=== PATIENT | female | born 1945 | race Caucasian/White ===

== ENCOUNTER → 2020-09-06 15:49 | Outpatient (BNVA) | payer OTHER, MEDICARE, SELFPAY | PROVIDERS: Family Provider Nurse Practitioner Family; PCP Registered Nurse; Visit Provider Registered Nurse | DX: N39.0 Urinary tract infection, site not specified (principal); J30.1 Allergic rhinitis due to pollen; R39.9 Unspecified symptoms and signs involving the genitourinary system | CPT/HCPCS: 81000; 87077; 87086; 87184 ==

== ENCOUNTER → 2020-09-22 08:46 | Outpatient (BNVA) | payer OTHER, MEDICARE, SELFPAY | PROVIDERS: Family Provider Nurse Practitioner Family; PCP Registered Nurse; Visit Provider Registered Nurse | DX: R39.9 Unspecified symptoms and signs involving the genitourinary system (principal); Z13.6 Encounter for screening for cardiovascular disorders; I10 Essential (primary) hypertension; F17.210 Nicotine dependence, cigarettes, uncomplicated; N39.0 Urinary tract infection, site not specified; J45.30 Mild persistent asthma, uncomplicated; B37.3 Candidiasis of vulva and vagina | CPT/HCPCS: 80053; 80061; 81000; 85025; 87086 ==

== ENCOUNTER → 2020-10-20 10:40 | Outpatient (BNVA) | payer OTHER, MEDICARE, SELFPAY | PROVIDERS: Family Provider Nurse Practitioner Family; PCP Registered Nurse; Visit Provider Nurse Practitioner Family | DX: R35.0 Frequency of micturition (principal); R31.9 Hematuria, unspecified; N39.0 Urinary tract infection, site not specified | CPT/HCPCS: 81000; 87077; 87086; 87184 ==

== ENCOUNTER → 2020-11-24 15:00 | Outpatient (BNVA) | payer OTHER, MEDICARE, SELFPAY | PROVIDERS: Family Provider Nurse Practitioner Family; PCP Registered Nurse; Visit Provider Family Medicine | DX: R41.3 Other amnesia (principal); R53.83 Other fatigue | CPT/HCPCS: 80053; 82607; 82652; 82746; 84443; 85025 ==

== ENCOUNTER → 2021-03-15 14:20 | Outpatient (BNVA) | payer MEDICARE, SELFPAY | PROVIDERS: PCP Registered Nurse; Visit Provider Nurse Practitioner Family | DX: R35.0 Frequency of micturition (principal) | CPT/HCPCS: 81000 ==

== ENCOUNTER 2021-04-26 13:56 | Outpatient (CLI) | payer MEDICARE, SELFPAY ==
--- NOTE | 2021-04-26 14:30 | MM_ITS ---
WS: [id number] BILATERAL DIGITAL SCREENING MAMMOGRAPHY WITH CAD CLINICAL INFORMATION: Z12.39 - Encounter for other screening for malignant neop... HISTORY: Screening mammogram. No current complaints. COMPARISON: February 26, 2017 TECHNIQUE: Bilateral CC and MLO views. FINDINGS: Scattered fibroglandular densities bilaterally. A few tiny punctate calcifications. No suspicious foc al mass, asymmetry, calcifications, or architectural distortion. No evidence of malignancy. MM/[place] [id number] IMPRESSION: BI-RADS: 2-Benign FOLLOW UP: 1 Year Follow-up Recommend return to annual screening mammography.
== END 2021-04-26 13:57 | disposition home or self-care (01) ==
LOC: RADSHAW 14:03
PROVIDERS: PCP Registered Nurse; Visit Provider Family Medicine
DX: Z12.31 Encounter for screening mammogram for malignant neoplasm of breast (principal)
CPT/HCPCS: 77067

== ENCOUNTER → 2021-07-21 15:29 | Outpatient (BNVA) | payer MEDICARE, SELFPAY | PROVIDERS: PCP Nurse Practitioner Family; Visit Provider Nurse Practitioner Family | DX: R53.83 Other fatigue (principal); J06.9 Acute upper respiratory infection, unspecified | CPT/HCPCS: 82962 ==

== ENCOUNTER → 2021-08-30 16:14 | Outpatient (BNVA) | payer MEDICARE, SELFPAY | PROVIDERS: PCP Nurse Practitioner Family; Visit Provider Nurse Practitioner Family | DX: R53.83 Other fatigue (principal); M25.50 Pain in unspecified joint; R05.9 Cough, unspecified | CPT/HCPCS: 80053; 84439; 84443; 84481; 85025; 86160; 86162; 86235; 86255; 86376; 86431; 86618; 86666; 86757 ==

== ENCOUNTER → 2022-09-28 14:28 | Outpatient (BNVA) | payer MEDICARE, SELFPAY | PROVIDERS: PCP Nurse Practitioner Family; Visit Provider Nurse Practitioner Family | DX: R35.0 Frequency of micturition (principal) | CPT/HCPCS: 81000 ==

== ENCOUNTER → 2022-10-01 10:33 | Outpatient (BNVA) | payer MEDICARE, SELFPAY | PROVIDERS: PCP Nurse Practitioner Family; Visit Provider Nurse Practitioner Family | DX: R53.83 Other fatigue (principal); R63.4 Abnormal weight loss; R41.3 Other amnesia | CPT/HCPCS: 80053; 82607; 84439; 84443; 84481; 85025 ==

== ENCOUNTER 2022-10-08 15:48 | Outpatient (CLI) | payer MEDICARE, SELFPAY ==
--- NOTE | 2022-10-08 16:00 | US_ITS ---
WS: [id number] US pelv w/transvag [id number] HISTORY: R10.2 - Pelvic and perineal pain COMPARISON: None available. Uterus: 6.2 cm x 2.7 cm x 2.9 cm. Slightly retroverted uterus. Hypoechoic mass consistent with a fibroid along the posterior myometrium measures 10 x 9 x 10 mm. Endometrium: 0.2 cm. Endometrium is fluid-filled. No endometrial mass identified. Cause of the endome trial distention is not determined. Cervical stenosis should be considered. Neither ovary is identified. There is a large amount of peristalsing GI tract within the adnexa. No f ree fluid in the cul-de-sac. US/US pelv w/transvag [id number] IMPRESSION: 1. Uterine fibroid measures 10 mm. 2. Fluid distention of the endometrium. No mass identified. Consider cervical stenosis. 3. Neither ovary is identified.
== END 2022-10-08 15:49 | disposition home or self-care (01) ==
PROVIDERS: PCP Nurse Practitioner Family; Visit Provider Nurse Practitioner Family
DX: R10.2 Pelvic and perineal pain (principal); D25.9 Leiomyoma of uterus, unspecified
CPT/HCPCS: 76830; 76856; 81000

== ENCOUNTER → 2022-11-23 14:57 | Outpatient (BNVA) | payer MEDICARE, SELFPAY | PROVIDERS: PCP Nurse Practitioner Family; Visit Provider Nurse Practitioner Family | DX: R05.9 Cough, unspecified (principal) | CPT/HCPCS: 87400; 87426 ==